=== PATIENT | female | born 1995 | race Caucasian/White ===

== ENCOUNTER → 2019-08-29 | Emergency (ER) | payer OTHER ==
[~2019-08-29] VITALS: Ht 165.1 cm; Wt 56.7 kg
[~2019-08-29] MED LIST: LIDOCAINE 1% HCL (LOCAL ANESTH.) INJ 20ML MDV ID ONE; LIDOCAINE 1% HCL (LOCAL ANESTH.) INJ 20ML MDV ONE; TETANUS-DIPTH-ACEL PERTUSSIS 0.5ML SYR Tdap IM ONE
[2019-08-29 14:36] VITALS: BP 123/81
== END | disposition home or self-care (01) ==
LOC: ER 12:48
DX: S01.511A Laceration without foreign body of lip, initial encounter (principal); W26.9XXA Contact with unspecified sharp object(s), initial encounter; Y93.89 Activity, other specified; Y99.8 Other external cause status; Y92.89 Other specified places as the place of occurrence of the external cause
CPT/HCPCS: 12011; 90471; 90715; 99283; J2001